=== PATIENT | female | born 1970 | race Caucasian/White ===

== ENCOUNTER 2017-02-27 12:20 | Emergency (ER) | payer MEDICAID ==
[~2017-02-27 12:20] MED LIST: ADVIL MIGRAINE200 M1 PO; COLACE100 M1 PO; IBUPROFEN800 M1 PO; KLONOPIN2 M1 PO; PROZAC20 M3 PO; ROXICODONE5 M2 PO; STOOL SOFTENER1 EAC4 PO; [UNRECOGNIZED DRUG - OTHER] PO; [UNRECOGNIZED DRUG - OTHER] PO
== END 2017-02-27 15:07 ==
LOC: EDMED 12:20
PROC: 0HBRXZZ Excision of Toe Nail, External Approach (ICD-10-PCS; principal; 2017-02-27)
DX: L60.0 Ingrowing nail (principal); M79.7 Fibromyalgia; Z98.890 Other specified postprocedural states; F17.290 Nicotine dependence, other tobacco product, uncomplicated